=== PATIENT | male | born 1980 | race Two or more races ===

== ENCOUNTER 2018-11-08 05:08 | Emergency (ER) | payer OTHER ==
[2018-11-08 05:47] VITALS: BMI 40.4
--- NOTE | 2018-11-08 05:54 | PDOC ---
History of Present Illness - General History Source: Patient Exam Limitations: No Limitations - History of Present Illness Initial Comments: 38 yo M w a pmh of asthma presents to the ED with a productive cough of white/ yellow sputum for 3 days as well as chest pain when he coughs. He states that 1 week ago he lost his voice and his throat hurt, then 3 days later he started having the cough. He has taken robitussin for the cough but it has not helped much. He also admits to having the chills for the past 3 days. He states he does not believe he has had a fever. He endorses mild nausea but no emesis. Patient denies currently having chest pain, SOB, difficulty breathing, abdominal pain, back pain, dysuria, frequency, urgency, headache, blurry vision , neck pain. PCP: Wisam Gann Hx: Denies smoking, drinking, or other illicit drug usage Allergies: NKA, NKDA <Roman Jean - Last Filed: 11/08/18 06:21> <Justus Rogers - Last Filed: 11/08/18 08:26> - General Chief Complaint: Cold Symptoms Stated Complaint: COLD SYMPTOMS,COUGH Time Seen by Provider: 11/08/18 05:46 Past History - Suicide/Smoking/Psychosocial Hx Smoking History: Never smoked Have you smoked in the past 12 months: No Information on smoking cessation initiated: No Hx Alcohol Use: No Drug/Substance Use Hx: No <Roman Jean - Last Filed: 11/08/18 06:21> <Justus Rogers - Last Filed: 11/08/18 08:26> - Past Medical History Allergies/Adverse Reactions: Allergies Allergy/AdvReac Type Severity Reaction Status Date / Time No Known Allergies Allergy Verified 11/08/18 05:47 Home Medications: Ambulatory Orders Albuterol Sulfate Inhaler - [Ventolin HFA Inhaler -] 1 - 2 inh PO Q4H PRN Azithromycin [Zithromax Tri-Nelson (3 DAYS) -] 500 mg PO DAILY #3 tablet 11/08/18 Review of Systems - Review of Systems Able to Perform ROS?: Yes Constitutional: Yes: Chills, Malaise. No: Diaphoresis, Fever HEENTM: Yes: Nose Congestion, Throat Pain, Dental Problems. No: Eye Pain, Blurred Vision, Tearing, Double Vision, Ear Pain, Nose Pain Respiratory: Yes: Cough (productive), Shortness of Breath, Productive cough. No : Stridor, Wheezing Cardiac (ROS): Yes: Chest Pain (when he coughs). No: Lightheadedness, Palpitations, Syncope ABD/GI: Yes: Nausea, Poor Fluid Intake. No: Abdominal Distended, Constipated, Diarrhea, Vomiting, Indigestion : No: Burning, Dysuria, Discharge, Frequency, Flank Pain Musculoskeletal: No: Back Pain, Joint Pain, Muscle Pain, Neck Pain Integumentary: No: Bruising, Change in Color, Dryness, Flushing, Lumps, Pallor, Pruritus, Rash Neurological: No: Headache, Numbness, Paresthesia, Seizure, Tingling, Tremors, Weakness Psychiatric: No: Anxiety, Depression, Stressors Endocrine: No: Excessive Sweating, Flushing Hematologic/Lymphatic: No: Anemia, Blood Clots, Easy Bleeding <Roman Jean - Last Filed: 11/08/18 06:21> *Physical Exam - Vital Signs Last Vital Signs Temp Pulse Resp BP Pulse Ox 98.8 F 87 20 130/72 96 11/08/18 05:10 11/08/18 05:10 11/08/18 05:10 11/08/18 05:10 11/08/18 05:10 - Physical Exam General Appearance: Yes: Nourished, Appropriately Dressed, Obese. No: Apparent Distress, Disheveled HEENT: positive: EOMI, ALLYSSA, Normal ENT Inspection, Normal Voice, Pharynx Normal. negative: Muffled/Hoarse voice, Pharyngeal Erythema, Tonsillar Erythema , Nasal Congestion, Rhinorrhea, Sinus Tenderness Neck: positive: Trachea midline, Supple. negative: Tender, Rigid, Decreased range of motion, Stridor, Lymphadenopathy (R), Lymphadenopathy (L), Tender lateral, Tender midline Respiratory/Chest: positive: Lungs Clear, Normal Breath Sounds. negative: Chest Tender, Respiratory Distress, Accessory Muscle Use, Labored Respiration, Decreased Breath Sounds, Crackles, Rales, Rhonchi, Stridor, Wheezing Cardiovascular: positive: Regular Rhythm, Regular Rate, S1, S2. negative: Edema , JVD, Murmur Vascular Pulses: Dorsalis-Pedis (R): 2+, Doralis-Pedis (L): 2+ Gastrointestinal/Abdominal: positive: Normal Bowel Sounds, Soft. negative: Tender, Guarding, Rebound Rectal Exam: positive: deferred Lymphatic: negative: Adenopathy Musculoskeletal: positive: Normal Inspection. negative: CVA Tenderness, Decreased Range of Motion, Vertebral Tenderness Extremity: positive: Normal Capillary Refill, Normal Inspection, Normal Range of Motion Integumentary: positive: Normal Color, Dry, Warm. negative: Erythema, Pale, Cold Neurologic: positive: cutter machine II-XII NML intact, Fully Oriented, Alert, Normal Mood/ Affect, Normal Response, Motor Strength 5/5 <Roman Jean - Last Filed: 11/08/18 06:21> - Vital Signs Last Vital Signs Temp Pulse Resp BP Pulse Ox 98.8 F 87 20 130/72 96 11/08/18 05:10 11/08/18 05:10 11/08/18 05:10 11/08/18 05:10 11/08/18 05:10 <Justus Rogers - Last Filed: 11/08/18 08:26> Moderate Sedation - Procedure Monitoring Vital Signs: Procedure Monitoring Vital Signs Temperature 98.8 F 11/08/18 05:10 Pulse Rate 87 11/08/18 05:10 Respiratory Rate 20 11/08/18 05:10 Blood Pressure 130/72 11/08/18 05:10 O2 Sat by Pulse Oximetry (%) 96 11/08/18 05:10 <Roman Jean - Last Filed: 11/08/18 06:21> - Procedure Monitoring Vital Signs: Procedure Monitoring Vital Signs Temperature 98.8 F 11/08/18 05:10 Pulse Rate 87 11/08/18 05:10 Respiratory Rate 20 11/08/18 05:10 Blood Pressure 130/72 11/08/18 05:10 O2 Sat by Pulse Oximetry (%) 96 11/08/18 05:10 <Justus Rogers - Last Filed: 11/08/18 08:26> ED Treatment Course - Medications Given in the ED: ED Medications Discontinued Medications Generic Name Dose Route Start Last Admin Trade Name Freq PRN Reason Stop Dose Admin Albuterol/Ipratropium 1 amp 11/08/18 06:03 11/08/18 06:29 Duoneb - NEB 11/08/18 06:04 1 amp ONCE ONE Administration Ibuprofen 600 mg 11/08/18 06:04 12/27/18 06:29 Motrin - PO 11/08/18 06:05 600 mg ONCE ONE Administration Sodium Chloride 1,000 ml 11/08/18 06:03 11/08/18 06:30 Normal Saline - IV 11/08/18 06:04 1,000 ml ONCE ONE Administration <Justus Rogers - Last Filed: 11/08/18 08:26> Medical Decision Making - Medical Decision Making 38 yo M w a pmh of asthma here with productive cough, sore throat, chills, occasional SOB, and chest pain associated with the cough DDx IBNLT: URI, laryngitis, bronchitis, PNA, strep, influenza, rhinovirus, other infection, asthma exacerbation. Plan: Chest x-ray, duoneb, re-assess. Patient is very well appearing and has no abnormal vital signs. Likely DC him home. <Roman Jean - Last Filed: 11/08/18 06:21> *DC/Admit/Observation/Transfer - Discharge Dispostion Decision to Admit order: No <Roman Jean - Last Filed: 11/08/18 06:21> - Discharge Dispostion Decision to Admit order: No <Justus Rogers - Last Filed: 11/08/18 08:26> Diagnosis at time of Disposition: URI (upper respiratory infection), Laryngitis, Walking pneumonia - Discharge Dispostion Disposition: HOME Condition at time of disposition: Fair - Prescriptions Prescriptions: Azithromycin [Zithromax Tri-Nelson (3 DAYS) -] 500 mg PO DAILY #3 tablet - Referrals Referrals: ON STAFF,NOT [Primary Care Provider] - [facility] [place] [Provider Group] - Patient Instructions Printed Discharge Instructions: How to Avoid a Cold or Flu, DI for Acute Bronchitis, DI for Viral Upper Respiratory Infection -- Adult, DI for Laryngitis Additional Instructions: You came into the ED with a cough and shortness of breath. We believe you have an upper respiratory infection. Take tylenol and motrin for pain and fever. please make sure to schedule a follow up appointment with your primary care doctor in the next 3 days to make sure you are okay and getting better. Please come back to the ER if your pain worsens, you can't breathe, or have any other new or worsening concerns. Thank you for coming to the [facility] ER. We hope you feel better soon! Print Language: [place] - Post Discharge Activity
[2018-11-08] MEDS ORDERED: SODIUM CHLORIDE 0.9% 500 ML INFUS.BAG IV ONE (06:03)
[2018-11-08] MEDS ORDERED: ALBUTEROL SO4 2.5/IPRATROPIUM 0.5 INH SOL 3 ML VIAL.NEB. NEB ONE ×2 (06:03→06:10)
[2018-11-08] MEDS ORDERED: IBUPROFEN 600 MG TABLET (FP) PO ONE ×2 (06:04→06:10)
--- NOTE | 2018-11-08 06:16 | PDOC ---
Attending Attestation - Resident Resident Name: Roman Jean - ED Attending Attestation I have performed the following: I have examined & evaluated the patient, The case was reviewed & discussed with the resident, I agree w/resident's findings & plan, Exceptions are as noted - HPI HPI: 11/08/18 06:10 38m pmh of asthma here with about 10 days of productive cough, congestion, sore throat, subjective fevers. Symptoms were initially waning over the first 5 days but have been progressing over the last 5 days. Now a/w chest pain when he coughs. Positive sick contact in step son with similar symptoms. - Physicial Exam PE: 11/08/18 06:14 Well appearing, nad, normal wob LCTAB, no wheeze Scattered rhonchi that cleared with cough - Medical Decision Making 11/08/18 06:15 Likely viral URI, vs normal in ED. Given change in symptoms and progression to productive cough will get cxr to eval for pna f/u cxr likely dc
[2018-11-08 08:27] VITALS: BP 131/90; PULSE 83; TEMP 98.1
== END 2018-11-08 08:27 | disposition home or self-care (01) ==
LOC: JER 05:08
PROC: 3E0F7GC Introduction of Other Therapeutic Substance into Respiratory Tract, Via Natural or Artificial Opening (ICD-10-PCS; principal; 2018-11-08)
DX: J18.9 Pneumonia, unspecified organism (principal); J04.0 Acute laryngitis; J06.9 Acute upper respiratory infection, unspecified
CPT/HCPCS: 71046-TC-FY; 99282-25

== ENCOUNTER 2019-10-03 07:33 | Emergency (ER) | payer OTHER ==
[2019-10-03 07:47] VITALS: BP 130/90; PULSE 84; TEMP 97.9; BMI 41.1
--- NOTE | 2019-10-03 07:58 | PDOC ---
History of Present Illness - General Chief Complaint: Cold Symptoms Stated Complaint: FLU LIKE SYMPTOMS Time Seen by Provider: 10/03/19 07:44 History Source: Patient Exam Limitations: No Limitations - History of Present Illness Initial Comments: 10/03/19 07:51 38 yo M w/ a h/o asthma (HOSPITALIZED IN THE PAST, UNSURE IF EVER INTUBATED), disc herniation comes in c/o flu like symptoms for the past 2 days, fever of 102.3 yesterday, bodyaches, chills, tingling to fingertips, runny nose, cough productive of green sputum with occasional SOB from coughing, no SOB now. (+) post tussive vomiting, headaches on and off from coughing a lot, (+)decrease in appetite, no decrease urination, good fluid intake, no smoking, no drug use. Pt used albuterol 2 days ago but it did not help much. (+)sick contacts at home, his son with Influenza A. No recent travel outside the country. No neck stiffness, no rash anywhere. 10/03/19 08:05 10/03/19 08:05 Past History - Past Medical History Allergies/Adverse Reactions: Allergies Allergy/AdvReac Type Severity Reaction Status Date / Time No Known Allergies Allergy Verified 10/03/19 07:39 Home Medications: Ambulatory Orders Albuterol Sulfate Inhaler - [Ventolin HFA Inhaler -] 1 - 2 inh PO Q4H PRN Fluticasone Prop 0.05% Nasal [Flonase -] 1 - 2 spray NS DAILY #1 spray.pump Ibuprofen 600 mg PO Q8H 3 Days #18 tablet 10/03/19 Oseltamivir Phosphate [Tamiflu -] 75 mg PO BID 5 Days #10 capsule 10/03/19 Asthma: Yes COPD: No - Immunization History Immunization Up to Date: Yes - Psycho Social/Smoking Cessation Hx Smoking History: Never smoked Have you smoked in the past 12 months: No Hx Alcohol Use: No Drug/Substance Use Hx: No Review of Systems - Review of Systems Able to Perform ROS?: Yes Constitutional: Yes: Chills, Fever, Loss of Appetite, Malaise. No: Night Sweats HEENTM: Yes: Nose Congestion. No: Eye Pain, Recent change in vision, Throat Pain Respiratory: Yes: Cough. No: Shortness of Breath (none now) Cardiac (ROS): No: Chest Pain, Palpitations, Chest Tightness ABD/GI: No: Diarrhea, Abdominal cramping : No: Dysuria, Hematuria Musculoskeletal: No: Back Pain Integumentary: No: Rash Neurological: No: Headache (none now), Numbness, Dizziness Psychiatric: No: Change in Appetite Endocrine: No: Unexplained Weight Loss *Physical Exam - Vital Signs Last Vital Signs Temp Pulse Resp BP Pulse Ox 97.9 F 84 16 130/90 98 10/03/19 07:40 10/03/19 07:40 10/03/19 07:40 10/03/19 07:40 10/03/19 07:40 - Physical Exam General Appearance: Yes: Nourished. No: Apparent Distress HEENT: positive: ALLYSSA, Normal ENT Inspection, Normal Voice, Other (rhinorrhea). negative: Pale Conjunctivae, Scleral Icterus (R), Scleral Icterus (L), Pharyngeal Erythema, Tonsillar Exudate Neck: positive: Supple. negative: Decreased range of motion, Tender midline Respiratory/Chest: positive: Lungs Clear, Normal Breath Sounds. negative: Respiratory Distress, Accessory Muscle Use Cardiovascular: positive: Regular Rhythm, Regular Rate Gastrointestinal/Abdominal: positive: Normal Bowel Sounds, Soft. negative: Tender Musculoskeletal: positive: Normal Inspection. negative: CVA Tenderness, Decreased Range of Motion Extremity: positive: Normal Capillary Refill, Normal Inspection, Normal Range of Motion. negative: Tender, Pedal Edema Integumentary: positive: Normal Color, Dry. negative: Jaundice, Rash Neurologic: positive: Fully Oriented, Alert, Normal Mood/Affect Medical Decision Making - Medical Decision Making 10/03/19 08:07 38 yo asthmatic with flu-like symptoms. Son Diagnosed with Flu A. Lungs CTA, O2sat 98%, no chest tightness. No indication for albuterol/prednisone. Pt non toxic appearing in NAD. WIll discharge with tamiflu, motrin, flonase PMD follow up return for worsening/concerning symptoms Rest and drink plenty of fluids. Pt verbalizes understanding and agrees with plan. Discharge - Discharge Information Problems reviewed: Yes Clinical Impression/Diagnosis: Influenza Condition: Stable Disposition: HOME - Follow up/Referral - Patient Discharge Instructions Patient Printed Discharge Instructions: DI for Influenza -- Adult - Post Discharge Activity Work/Back to School Note: Back to Work
[2019-10-03] MEDS ORDERED: OSELTAMIVIR PHOSPHATE 75 MG CAPSULE PO ONE (08:04)
[2019-10-03] MEDS ORDERED: IBUPROFEN 600 MG TABLET (FP) PO ONE ×2 (08:04→08:07)
[2019-10-03] MEDS ORDERED: OSELTAMIVIR PHOSPHATE 75 MG CAPSULE ONE (08:05)
== END 2019-10-03 08:17 | disposition home or self-care (01) ==
LOC: JER 07:33
DX: J10.1 Influenza due to other identified influenza virus with other respiratory manifestations (principal)
CPT/HCPCS: 99282-25